=== PATIENT | female | born 1960 | race Caucasian/White ===

== ENCOUNTER 2017-11-06 20:30 | Emergency (ER) | payer SELFPAY ==
[2017-11-06] MEDS ORDERED: IPRATROPIUM BROM 0.5MG/2.5ML ONE (21:28)
[2017-11-06] MEDS ORDERED: ALBUTEROL 2.5 MG/3 ML NEB SOL ONE (21:28)
[2017-11-06] MEDS ORDERED: LEVALBUTEROL 1.25 MG/3 ML NEB ONE (21:33)
[2017-11-06] MEDS ORDERED: predniSONE 20 MG TAB ONE (21:48)
--- NOTE | 2017-11-06 22:16 | EDPHYS ---
Physician Documentation [facility] Name: Kaylie Crow Age: 57 yrs Sex: Female : 1960 Arrival Date: 11/06/2017 Time: 20:37 Bed 23 Private MD: ED Physician Ray Wallace HPI: 11/06 21:08 This 57 yrs old Female presents to ER via Ambulatory with complaints of cp Cough, Breathing Difficulty. 21:08 The patient or guardian reports cough, that is intermittent, with productive sputum, cp that is green. Onset: The symptoms/episode began/occurred 3 day(s) ago. Severity of symptoms: in the emergency department the symptoms are unchanged, despite home interventions. Associated signs and symptoms: Pertinent positives: sore throat, shortness of breath, Pertinent negatives: chest pain, diarrhea, fever, vomiting. Historical: - Allergies: 20:40 Iodine; la1 20:40 PENICILLINS; la1 20:40 Erythromycin; la1 - PMHx: 20:40 Anxiety; la1 - Immunization history:: Adult Immunizations up to date. - Social history:: Smoking status: Patient uses tobacco products, smokes one-half pack cigarettes per day. ROS: 21:15 Constitutional: Negative for body aches, chills, fever, poor PO intake. cp 21:15 Eyes: Negative for injury, pain, redness, and discharge. cp 21:15 ENT: Positive for sore throat, Negative for drainage from ear(s), ear pain, difficulty swallowing, difficulty handling secretions. 21:15 Cardiovascular: Negative for chest pain, edema, palpitations. 21:15 Respiratory: Positive for cough, with green sputum, shortness of breath, on exertion. wheezing, Negative for hemoptysis. 21:15 Abdomen/GI: Negative for abdominal pain, nausea, vomiting, and diarrhea, black/tarry stool, rectal bleeding. 21:15 Back: Negative for pain at rest, pain with movement, radiated pain. 21:15 : Negative for urinary symptoms. 21:15 Skin: Negative for cellulitis, rash. 21:15 Neuro: Negative for altered mental status, headache, weakness. 21:15 All other systems are negative. Exam: 21:15 Head/Face: Normocephalic, atraumatic. cp 21:15 Constitutional: The patient appears in no acute distress, alert, awake, non-diaphoretic, non-toxic, well developed, well nourished. 21:15 Eyes: Periorbital structures: appear normal, Conjunctiva: normal, no exudate, no injection, Sclera: no appreciated abnormality, Lids and lashes: appear normal, bilaterally. 21:15 ENT: External ear(s): are unremarkable, Ear canal(s): are normal, clear, TM's: bulging, is not appreciated, bilaterally, dullness, bilaterally, erythema, is not appreciated, bilaterally, Nose: is normal, Mouth: Lips: moist, Oral mucosa: moist, Posterior pharynx: is normal, airway is patent, no exudate, swelling, is not appreciated, erythema, that is mild. 21:15 Neck: ROM/movement: is normal, is supple, without pain, no range of motions limitations, no meningismus, no nuchal rigidity, Lymph nodes: no appreciated lymphadenopathy. 21:15 Chest/axilla: Inspection: normal, Palpation: is normal, no crepitus, no tenderness. 21:15 Cardiovascular: Rate: normal, Rhythm: regular, Edema: is not appreciated, JVD: is not appreciated. 21:15 Respiratory: the patient does not display signs of respiratory distress, Respirations: normal, no use of accessory muscles, no retractions, no splinting, no tachypnea, labored breathing, is not present, Breath sounds: decreased breath sounds, that are moderate, throughout, stridor, is not appreciated, wheezing: that is mild, is heard diffusely. 21:15 Abdomen/GI: Exam negative for discomfort, distension, guarding, Inspection: abdomen appears normal. 21:15 Back: pain, is absent, ROM is normal. 21:15 Skin: cellulitis, is not appreciated, no rash present. Vital Signs: 20:40 BP 161 / 78; Pulse 93; Resp 15; Temp 98.2(TE); Pulse Ox 96% on R/A; Weight 52.16 kg; la1 Height 5 ft. 3 in. (160.02 cm); 20:53 BP 151 / 72; Pulse 74; Resp 18; Pulse Ox 94% on R/A; tl3 21:44 BP 140 / 67; Pulse 72; Resp 18; Pulse Ox 100% ; tl3 22:30 BP 130 / 85; Pulse 97; Resp 18; Pulse Ox 100% ; tl3 20:40 Body Mass Index 20.37 (52.16 kg, 160.02 cm) la1 MDM: 20:44 Patient medically screened. cp 22:00 Differential Diagnosis: Bronchitis Influenza Upper Respiratory Infection Sinusitis cp Otitis Media Pneumonia. 22:10 Data reviewed: vital signs, nurses notes, lab test result(s), radiologic studies, plain cp films, and as a result, I will discharge patient. 22:10 Test interpretation: by ED physician or midlevel provider: plain radiologic studies. cp Counseling: I had a detailed discussion with the patient and/or guardian regarding: the historical points, exam findings, and any diagnostic results supporting the discharge/admit diagnosis, lab results, radiology results, the need for outpatient follow up, a family practitioner, to return to the emergency department if symptoms worsen or persist or if there are any questions or concerns that arise at home. Response to treatment: improved. Will discharge to home for continued monitoring. 11/06 21:06 Order name: Influenza Screen (a \T\ B); Complete Time: 22:04 11/06 22:04 Interpretation: Reviewed. 11/06 21:06 Order name: Strep; Complete Time: 22:04 11/06 22:04 Interpretation: Reviewed. 11/06 21:06 Order name: XRAY Chest Pa And Lat (2 Views) 11/06 22:04 Order name: Throat Culture EDMS Administered Medications: 21:42 Not Given (pt does not tolerate Albuterol): Albuterol 2.5 mg Inhalation once tl3 21:42 Not Given (pt does not tolerate Albuterol): AtroVENT Aerosol 0.5 mg Inhalation once tl3 21:43 CANCELLED (Duplicate Order): Xopenex (3) 1.25 mg Inhalation once tl3 21:44 Drug: Xopenex 1.25 mg Route: Inhalation; tl3 22:10 Follow up: Response: No adverse reaction; cough reduced tl3 21:53 Drug: predniSONE 40 mg Route: PO; tl3 Disposition: 11/07 06:24 Co-signature as Attending Physician, Ray Wallace MD. Disposition: 11/06/17 22:15 Discharged to Home. Impression: Acute bronchitis. - Condition is Stable. - Discharge Instructions: Acute Bronchitis. - Prescriptions for Xopenex HFA 45 mcg/actuation Inhalation HFA aerosol inhaler - inhale 1 puff by INHALATION route every 4 hours; 1 unit. Prednisone 20 mg Oral Tablet - take 2 tablet by ORAL route once daily for 5 days; 10 tablet. Tessalon Perles 100 mg Oral Capsule - take 1 capsule by ORAL route every 8 hours As needed; 15 capsule. - Medication Reconciliation Form, Thank You Letter, Antibiotic Education, Prescription Opioid Use form. - Follow up: Private Physician; When: 1 - 2 days; Reason: Recheck today's complaints. - Problem is new. - Symptoms have improved. Signatures: Dispatcher [employer] EDMS Cesar Wagner RN RN la1 Bradley Wellington PA PA cp Starr, Gregory, MD MD gs Lowrey, Tammy RN RN tl3 Corrections: (The following items were deleted from the chart) 11/06 21:43 21:43 Xopenex (3) 1.25 mg Inhalation once ordered. tl3 tl3 21:43 21:43 Xopenex (3) 1.25 mg Inhalation once ordered. tl3 tl3
--- NOTE | 2017-11-06 22:16 | ER ---
Nurse's Notes [facility] Name: Kaylie Crow Age: 57 yrs Sex: Female : 1960 Arrival Date: 11/06/2017 Time: 20:37 Bed 23 Private MD: Diagnosis: Acute bronchitis Presentation: 11/06 20:40 Presenting complaint: Patient states: Cough for 5 days, now productive with green la1 sputum. Transition of care: patient was not received from another setting of care. Onset of symptoms was November 06, 2017. Care prior to arrival: None. 20:40 Method Of Arrival: Ambulatory la1 20:40 Acuity: UMESH 3 la1 Triage Assessment: 21:45 General: Appears in no apparent distress. distressed, comfortable. Respiratory: Reports tl3 cough that is productive, Airway is patent Trachea midline Respiratory effort is even, unlabored, Respiratory pattern is regular, symmetrical, Breath sounds are clear Breath sounds with rales in right middle lobe and right lower lobe Onset: The symptoms/episode began/occurred 5 days, the patient has mild shortness of breath. Historical: - Allergies: 20:40 Iodine; la1 20:40 PENICILLINS; la1 20:40 Erythromycin; la1 - PMHx: 20:40 Anxiety; la1 - Immunization history:: Adult Immunizations up to date. - Social history:: Smoking status: Patient uses tobacco products, smokes one-half pack cigarettes per day. Screenin:53 Abuse screen: Denies threats or abuse. Nutritional screening: No deficits noted. tl3 Tuberculosis screening: No symptoms or risk factors identified. Fall Risk None identified. Assessment: 20:53 General: Appears in no apparent distress. comfortable, slender, well groomed, well tl3 developed, well nourished, Behavior is calm, cooperative, appropriate for age. Pain: Complains of pain in chest. Neuro: Level of Consciousness is awake, alert, obeys commands, Oriented to person, place, time, situation, Appropriate for age. Cardiovascular: Heart tones S1 S2 present Capillary refill < 3 seconds in bilateral fingers Rhythm is regular. Respiratory: Airway is patent Trachea midline Respiratory effort is even, unlabored, Respiratory pattern is regular, symmetrical, Sputum is green Breath sounds with rales in right middle lobe and right lower lobe. GI: No signs and/or symptoms were reported involving the gastrointestinal system. : No signs and/or symptoms were reported regarding the genitourinary system. EENT: No signs and/or symptoms were reported regarding the EENT system. Derm: No signs and/or symptoms reported regarding the dermatologic system. Musculoskeletal: No signs and/or symptoms reported regarding the musculoskeletal system. 21:50 Reassessment: Patient appears in no apparent distress at this time. No changes from tl3 previously documented assessment. Patient and/or family updated on plan of care and expected duration. Pain level reassessed. Patient is alert, oriented x 3, equal unlabored respirations, skin warm/dry/pink. 22:30 Reassessment: Patient appears in no apparent distress at this time. No changes from tl3 previously documented assessment. Patient and/or family updated on plan of care and expected duration. Pain level reassessed. Patient is alert, oriented x 3, equal unlabored respirations, skin warm/dry/pink. pt tolerated treatment well. Vital Signs: 20:40 BP 161 / 78; Pulse 93; Resp 15; Temp 98.2(TE); Pulse Ox 96% on R/A; Weight 52.16 kg; la1 Height 5 ft. 3 in. (160.02 cm); 20:53 BP 151 / 72; Pulse 74; Resp 18; Pulse Ox 94% on R/A; tl3 21:44 BP 140 / 67; Pulse 72; Resp 18; Pulse Ox 100% ; tl3 22:30 BP 130 / 85; Pulse 97; Resp 18; Pulse Ox 100% ; tl3 20:40 Body Mass Index 20.37 (52.16 kg, 160.02 cm) la1 ED Course: 20:37 Patient arrived in ED. am2 20:40 Triage completed. la1 20:41 Arm band placed on left wrist. la1 20:44 Bradley Wellington PA is PHCP. cp 20:44 Ray Wallace MD is Attending Physician. cp 20:49 Sherice Mccray RN is Primary Nurse. tl3 20:53 No apparent distress. Awaiting ED provider evaluation. tl3 20:53 Patient has correct armband on for positive identification. Placed in gown. Bed in low tl3 position. Call light in reach. Side rails up X 1. Pulse ox on. NIBP on. Warm blanket given. 20:53 No provider procedures requiring assistance completed. Patient did not have IV access tl3 during this emergency room visit. 21:19 X-ray completed. Portable x-ray completed in exam room. Patient tolerated procedure kp1 well. 21:20 XRAY Chest Pa And Lat (2 Views) In Process Unspecified. EDMS 21:41 Initial Neb Treatment Given as ordered Patient was instructed and evaluated on tl3 procedure. 23:58 Throat Culture Sent. tl3 Administered Medications: 21:42 Not Given (pt does not tolerate Albuterol): Albuterol 2.5 mg Inhalation once tl3 21:42 Not Given (pt does not tolerate Albuterol): AtroVENT Aerosol 0.5 mg Inhalation once tl3 21:43 CANCELLED (Duplicate Order): Xopenex (3) 1.25 mg Inhalation once tl3 21:44 Drug: Xopenex 1.25 mg Route: Inhalation; tl3 22:10 Follow up: Response: No adverse reaction; cough reduced tl3 21:53 Drug: predniSONE 40 mg Route: PO; tl3 Intake: Outcome: 22:15 Discharge ordered by MD. cp 22:30 Discharged to home ambulatory. tl3 22:30 Condition: good 22:30 Discharge instructions given to patient, Instructed on discharge instructions, follow up and referral plans. medication usage, Demonstrated understanding of instructions, follow-up care, medications, Prescriptions given X 3. 23:12 Patient left the ED. tl3 Signatures: Dispatcher [employer] EDMS Cesar Wagner RN RN la1 Bradley Wellington PA PA cp Moreno, Amanda am2 Radha Geiger kp1 Sherice Mccray RN RN tl3 Corrections: (The following items were deleted from the chart) 23:02 21:44 Reassessment: Patient appears in no apparent distress at this time. No changes tl3 from previously documented assessment. Patient and/or family updated on plan of care and expected duration. Pain level reassessed. Patient is alert/active/playful, equal unlabored respirations, skin warm/dry/pink. tl3 23:28 23:27 Response: No adverse reaction; cough reduced tl3 tl3
--- NOTE | 2017-11-06 22:56 | RAD REPORT ---
EXAM DESCRIPTION: RAD - Chest Pa And Lat (2 Views) - 11/06/2017 9:22 pm CLINICAL HISTORY: Chest pain. Cough x5 days COMPARISON: None. TECHNIQUE: PA and lateral views of the chest were obtained. FINDINGS: The lungs are hyperexpanded compatible with COPD. The heart is upper limit of normal in si ze. No fracture or aggressive bony process. IMPRESSION: COPD without acute process identified.
== END 2017-11-06 23:12 | disposition home or self-care (01) ==
LOC: ER 20:30
DX: J20.9 Acute bronchitis, unspecified (principal); F17.210 Nicotine dependence, cigarettes, uncomplicated; Z88.0 Allergy status to penicillin; Z88.3 Allergy status to other anti-infective agents; Z91.048 Other nonmedicinal substance allergy status
CPT/HCPCS: 71046; 87070; 87081; 87804; 99284; J7512

== ENCOUNTER 2017-12-13 19:55 | Emergency (ER) | payer SELFPAY ==
--- NOTE | 2017-12-13 20:53 | RAD REPORT ---
EXAM DESCRIPTION: RAD - Foot Right 3 View - 12/13/2017 8:35 pm CLINICAL HISTORY: Right foot pain status post injury FINDINGS: No fracture or dislocation is seen
--- NOTE | 2017-12-13 21:42 | EDPHYS ---
Physician Documentation [facility] Name: Kaylie Crow Age: 57 yrs Sex: Female : 1960 Arrival Date: 12/13/2017 Time: 19:56 Bed Treatment Private MD: Bradley Vides HPI: 12/13 20:13 This 57 yrs old Female presents to ER via Wheelchair with complaints of Foot rayshawn Injury. 20:13 The patient presents with decreased range of motion, pain, swelling, tenderness. The rayshawn complaints affect the right foot, lateral side of right foot. Historical: - Allergies: 20:04 Erythromycin; aj1 20:04 Iodine; aj1 20:04 PENICILLINS; aj1 - Home Meds: 20:04 None [Active]; aj1 - PMHx: 20:04 Anxiety; aj1 - PSHx: 20:04 Tonsillectomy; aj1 - Immunization history:: Flu vaccine is not up to date. - Social history:: Smoking status: Patient uses tobacco products, smokes one pack cigarettes per day. - Ebola Screening: : No symptoms or risks identified at this time. - Family history:: not pertinent. ROS: 20:13 Constitutional: Negative for fever, chills, and weight loss, Eyes: Negative for injury, rayshawn pain, redness, and discharge, ENT: Negative for injury, pain, and discharge, Neck: Negative for injury, pain, and swelling, Cardiovascular: Negative for chest pain, palpitations, and edema, Respiratory: Negative for shortness of breath, cough, wheezing, and pleuritic chest pain, Abdomen/GI: Negative for abdominal pain, nausea, vomiting, diarrhea, and constipation, Back: Negative for injury and pain, : Negative for injury, bleeding, discharge, and swelling, Skin: Negative for injury, rash, and discoloration, Neuro: Negative for headache, weakness, numbness, tingling, and seizure, Psych: Negative for depression, anxiety, suicide ideation, homicidal ideation, and hallucinations, Allergy/Immunology: Negative for hives, rash, and allergies, Endocrine: Negative for neck swelling, polydipsia, polyuria, polyphagia, and marked weight changes, Hematologic/Lymphatic: Negative for swollen nodes, abnormal bleeding, and unusual bruising. 20:13 MS/extremity: Positive for injury or acute deformity, decreased range of motion, pain, of the lateral side of right foot. Exam: 20:13 Constitutional: This is a well developed, well nourished patient who is awake, alert, rayshawn and in no acute distress. Head/Face: Normocephalic, atraumatic. Eyes: Pupils equal round and reactive to light, extra-ocular motions intact. Lids and lashes normal. Conjunctiva and sclera are non-icteric and not injected. Cornea within normal limits. Periorbital areas with no swelling, redness, or edema. ENT: Nares patent. No nasal discharge, no septal abnormalities noted. Tympanic membranes are normal and external auditory canals are clear. Oropharynx with no redness, swelling, or masses, exudates, or evidence of obstruction, uvula midline. Mucous membranes moist. Neck: Trachea midline, no thyromegaly or masses palpated, and no cervical lymphadenopathy. Supple, full range of motion without nuchal rigidity, or vertebral point tenderness. No Meningismus. Chest/axilla: Normal chest wall appearance and motion. Nontender with no deformity. No lesions are appreciated. Cardiovascular: Regular rate and rhythm with a normal S1 and S2. No gallops, murmurs, or rubs. Normal PMI, no JVD. No pulse deficits. Respiratory: Lungs have equal breath sounds bilaterally, clear to auscultation and percussion. No rales, rhonchi or wheezes noted. No increased work of breathing, no retractions or nasal flaring. Abdomen/GI: Soft, non-tender, with normal bowel sounds. No distension or tympany. No guarding or rebound. No evidence of tenderness throughout. Back: No spinal tenderness. No costovertebral tenderness. Full range of motion. Female : Normal external genitalia. Skin: Warm, dry with normal turgor. Normal color with no rashes, no lesions, and no evidence of cellulitis. Neuro: Awake and alert, GCS 15, oriented to person, place, time, and situation. Cranial nerves II-XII grossly intact. Motor strength 5/5 in all extremities. Sensory grossly intact. Cerebellar exam normal. Normal gait. Psych: Awake, alert, with orientation to person, place and time. Behavior, mood, and affect are within normal limits. 20:13 Musculoskeletal/extremity: Extremities: noted in the lateral side of right foot: decreased ROM, pain, swelling, tenderness. Vital Signs: 20:04 BP 144 / 83; Pulse 93; Resp 18; Temp 97.6(TE); Pulse Ox 100% on R/A; Weight 54.43 kg; aj1 Height 5 ft. 3 in. (160.02 cm); Pain 4/10; 20:04 Body Mass Index 21.26 (54.43 kg, 160.02 cm) aj1 MDM: 20:09 Patient medically screened. [facility] 20:18 Data reviewed: vital signs, nurses notes, radiologic studies, plain films. [facility] 12/13 20:13 Order name: Foot Right 3 View XRAY [facility] 12/13 20:13 Order name: Post-op shoe; Complete Time: 20:20 [facility] 12/13 20:13 Order name: Ice pack; Complete Time: 20: [facility] 12/13 20:45 Order name: Crutches; Complete Time: 21:00 [facility] Administered Medications: 21:00 Not Given (Patient Refused): Motrin 400 mg PO once rk2 Disposition: 12/13/17 21:42 Discharged to Home. Impression: Other sprain of right foot. - Condition is Stable. - Discharge Instructions: Foot Contusion, Foot Sprain, Foot Contusion, [id number]. - Prescriptions for Tylenol- Codeine #3 300-30 mg Oral Tablet - take 2 tablet by ORAL route every 6 hours As needed; 30 tablet. Motrin IB 200 mg Oral Tablet - take 1 tablet by ORAL route every 6 hours As needed as needed with food; 20 tablet. - Follow up: Dr. Soy Francis; When: 2 - 3 days; Reason: Recheck today's complaints, Re-evaluation by your physician. - Problem is new. - Symptoms have improved. Signatures: Dispatcher [employer] EDOlga Pelletier, RN RN aj1 Bradley Davis MD MD cha Kidder, Rhonda, RN RN rk2
--- NOTE | 2017-12-13 21:42 | ER ---
Nurse's Notes [facility] Name: Kaylie Crow Age: 57 yrs Sex: Female : 1960 Arrival Date: 12/13/2017 Time: 19:56 Bed Treatment Private MD: Diagnosis: Other sprain of right foot Presentation: 12/13 20:01 Presenting complaint: Patient states: I was standing on some jeana and it was loose and aj1 it slipped and I stepped down on my right foot and I heard a snap and I've had pain in that foot since. I broke this foot before and feels exactly the same. Reports she is unable to bear weight on the right foot. Transition of care: patient was not received from another setting of care. Onset of symptoms was December 13, 2017 at 16:00. Risk Assessment: Do you want to hurt yourself or someone else? Patient reports no desire to harm self or others. Initial Sepsis Screen: Does the patient meet any 2 criteria? No. Patient's initial sepsis screen is negative. Does the patient have a suspected source of infection? No. Patient's initial sepsis screen is negative. Care prior to arrival: None. 20:01 Method Of Arrival: Wheelchair aj1 20:01 Acuity: UMESH 4 aj1 Triage Assessment: 20:04 General: Appears in no apparent distress. comfortable, Behavior is calm, cooperative, aj1 appropriate for age. Pain: Complains of pain in right foot Pain does not radiate. Pain currently is 4 out of 10 on a pain scale. at worst was 9 out of 10 on a pain scale. Quality of pain is described as stabbing, Pain began 4 hours ago. Is continuous, Aggravated by weight bearing. Musculoskeletal:. Musculoskeletal: Range of motion: limited in right ankle. 20:28 Neuro: Level of Consciousness is alert, obeys commands, Oriented to person, place, rk2 time, situation. Respiratory: Airway is patent Respiratory effort is even, unlabored, Respiratory pattern is regular, symmetrical. Injury Description: No obvious deformity noted... mild swelling to. Historical: - Allergies: 20:04 Erythromycin; aj1 20:04 Iodine; aj1 20:04 PENICILLINS; aj1 - Home Meds: 20:04 None [Active]; aj1 - PMHx: 20:04 Anxiety; aj1 - PSHx: 20:04 Tonsillectomy; aj1 - Immunization history:: Flu vaccine is not up to date. - Social history:: Smoking status: Patient uses tobacco products, smokes one pack cigarettes per day. - Ebola Screening: : No symptoms or risks identified at this time. - Family history:: not pertinent. Screenin:28 Abuse screen: Denies threats or abuse. Nutritional screening: No deficits noted. rk2 Tuberculosis screening: No symptoms or risk factors identified. Fall Risk None identified. Assessment: 21:36 Reassessment: Reviewed DC instructions with pt... pt. ambulated out without difficulty rk2 on crutches. Vital Signs: 20:04 BP 144 / 83; Pulse 93; Resp 18; Temp 97.6(TE); Pulse Ox 100% on R/A; Weight 54.43 kg; aj1 Height 5 ft. 3 in. (160.02 cm); Pain 4/10; 20:04 Body Mass Index 21.26 (54.43 kg, 160.02 cm) aj1 ED Course: 19:56 Patient arrived in ED. ds1 20:03 Triage completed. aj1 20:04 Arm band placed on Patient placed in an exam room. aj1 20:07 Saba Berrios DO is Private Physician. bb 20:09 Bradley Davis MD is Attending Physician. rayshawn 20:09 Hafsa Duran, HALIE is Primary Nurse. rk2 20:28 X-ray completed. Portable x-ray completed in exam room. Patient tolerated procedure kc2 well. 20:28 Patient has correct armband on for positive identification. Bed in low position. Call rk2 light in reach. 20:30 Foot Right 3 View XRAY In Process Unspecified. EDMS 21:41 No provider procedures requiring assistance completed. Patient did not have IV access rk2 during this emergency room visit. 21:42 Soy Francis MD is Referral Physician. rk2 Administered Medications: 21:00 Not Given (Patient Refused): Motrin 400 mg PO once rk2 Outcome: 21:41 Discharged to home ambulatory. rk2 21:41 Condition: good 21:41 Discharge instructions given to patient, Prescriptions given X 2. 21:42 Discharge ordered by . rk2 21:42 Patient left the ED. rk2 Signatures: Dispatcher [employer] EDTN Olga Jara RN RN aj1 Bradley Davis MD MD cha Sanford, Demi ds1 Cait Sharpe, RN RN bb April Valle2 Hafsa Duran RN RN rk2
== END 2017-12-13 21:42 | disposition home or self-care (01) ==
LOC: ER 19:55
DX: S93.691A Other sprain of right foot, initial encounter (principal); W01.0XXA Fall on same level from slipping, tripping and stumbling without subsequent striking against object, initial encounter; Y93.89 Activity, other specified; Y92.9 Unspecified place or not applicable; Z88.0 Allergy status to penicillin; Z88.3 Allergy status to other anti-infective agents; Z91.048 Other nonmedicinal substance allergy status; F17.210 Nicotine dependence, cigarettes, uncomplicated
CPT/HCPCS: 99283